=== PATIENT | male | born 1985 | race Caucasian/White ===

== ENCOUNTER 2020-06-13 14:32 | Emergency (ER) | payer MEDICAID ==
[~2020-06-13] VITALS: Ht 185.4 cm; Wt 67.6 kg
[2020-06-13 14:34] VITALS: BP 128/72
--- NOTE | 2020-06-13 14:48 | NUR ---
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
--- NOTE | 2020-06-13 14:52 | NUR ---
REPORT RECEIVED FROM FAITH BUTLER. PLAN OF CARE DISCUSSED
== END 2020-06-13 17:52 | disposition home or self-care (01) ==
LOC: ED 17:25
DX: G89.11 Acute pain due to trauma (principal); M25.461 Effusion, right knee; E10.9 Type 1 diabetes mellitus without complications; F17.210 Nicotine dependence, cigarettes, uncomplicated; X58.XXXA Exposure to other specified factors, initial encounter; Y93.39 Activity, other involving climbing, rappelling and jumping off; Y92.89 Other specified places as the place of occurrence of the external cause; Y99.8 Other external cause status
CPT/HCPCS: 29505; 99283

== ENCOUNTER 2020-07-19 12:11 | Emergency (ER) | payer MEDICAID ==
[~2020-07-19] VITALS: Ht 185.4 cm; Wt 68.0 kg
[2020-07-19 12:13] VITALS: BP 124/77
[2020-07-19] MEDS ORDERED: KETOROLAC 30 MG/1 ML IM ONE (12:30)
[2020-07-19] MEDS ORDERED: KETOROLAC 30 MG/1 ML ONE (12:37)
== END 2020-07-19 14:14 | disposition home or self-care (01) ==
LOC: ED 13:10
DX: S29.011A Strain of muscle and tendon of front wall of thorax, initial encounter (principal); M94.0 Chondrocostal junction syndrome [Tietze]; E11.9 Type 2 diabetes mellitus without complications; F17.200 Nicotine dependence, unspecified, uncomplicated; R94.31 Abnormal electrocardiogram [ECG] [EKG]; X58.XXXA Exposure to other specified factors, initial encounter; Y93.89 Activity, other specified; Y92.89 Other specified places as the place of occurrence of the external cause; Y99.8 Other external cause status
CPT/HCPCS: 71101; 93005; 96372; 99283; J1885